=== PATIENT | female | born 1955 | race American Indian/Alaskan Native ===

== ENCOUNTER 2016-04-11 13:01 | Emergency (ER) | payer OTHER ==
[2016-04-11 14:07] VITALS: BP 146/92
[2016-04-11] MEDS ORDERED: BOOSTRIX IM ONE (18:33)
--- NOTE | 2016-04-11 18:38 | Emergency Department Report ---
Burn HPI - History Stated Complaint: BURNED HAND WITH OIL LAST NIGHT Chief Complaint: Burn/Smoke Inhalation Time Seen by Provider: 04/11/16 18:33 Duration of Burn: 1 Day Burn Location: Other Burn Etiology: Accidental Pain: Moderate (right hand) Tetanus Status: Not up to Date Symptoms:: Yes Blistering, Yes Able to Tolerate Fluids, No Malaise, No Myalgias , No Fever, No Vomiting Other History: Patient reports that she accidentally burned her right hand while cooking last night - Home Meds and Allergies Home Medications: Home Medications Medication Instructions Recorded Confirmed Last Taken Aspirin [Aspirin BABY CHEW TAB] 81 mg PO DAILY 02/16/14 02/16/14 02/09/14 Cholecalciferol (Vitamin D3) 2,000 units PO DAILY 02/16/14 02/16/14 02/15/14 [Vitamin D-3] Metformin HCl [Metformin HCl ER] 500 mg PO DAILY 02/16/14 02/16/14 02/15/14 Naproxen Sodium [Aleve] 220 mg PO PRN 02/16/14 02/16/14 02/09/14 Olmesartan/Hydrochlorothiazide 1 tab PO DAILY 02/16/14 02/16/14 02/16/14 [Benicar HCT 40-12.5 mg] [place]-3S/Dha/Epa/Fish Oil [Fish 1,200 mg PO DAILY 02/16/14 02/16/14 02/15/14 Oil EC 1,200 mg Softgel] Simvastatin [Simvastatin] 20 mg PO DAILY 02/16/14 02/16/14 02/15/14 Previous Rx's Medication Instructions Recorded Last Taken Type Acetaminophen [Acetaminophen ER 650 mg PO Q8HR PRN #20 tablet.er 04/11/16 Unknown Rx TAB] Silver Sulfadiazine 20 gm TP TID #1 cream..g. 04/11/16 Unknown Rx Allergies/Adverse Reactions: Allergies Allergy/AdvReac Type Severity Reaction Status Date / Time No Known Allergies Allergy Verified 06/26/13 01:34 ED Review of Systems ROS: Stated complaint: BURNED HAND WITH OIL LAST NIGHT Other details as noted in HPI Constitutional: denies: chills, diaphoresis, fever, malaise, weakness Respiratory: denies: cough, orthopnea, shortness of breath, SOB with exertion, SOB at rest, stridor, wheezing Cardiovascular: denies: chest pain, palpitations, dyspnea on exertion, orthopnea , edema, syncope, paroxysmal nocturnal dyspnea Skin: other (second-degree burn on the right dorsum and palmar hand). denies: rash, lesions, change in color, change in hair/nails, pruritus Hematological/Lymphatic: denies: easy bleeding, easy bruising, swollen glands ED Past Medical Hx - Past Medical History Hx Hypertension: No Hx Diabetes: Yes Hx Liver Disease: No Hx Renal Disease: No Hx Sickle Cell Disease: No Hx Seizures: No - Surgical History Hx Cholecystectomy: Yes Additional Surgical History: leep - Social History Smoking Status: Never Smoker Substance Use Type: None - Medications Home Medications: Home Medications Medication Instructions Recorded Confirmed Last Taken Type Aspirin [Aspirin BABY CHEW TAB] 81 mg PO DAILY 02/16/14 02/16/14 02/09/14 History Cholecalciferol (Vitamin D3) 2,000 units PO DAILY 02/16/14 02/16/14 02/15/14 History [Vitamin D-3] Metformin HCl [Metformin HCl ER] 500 mg PO DAILY 02/16/14 02/16/14 02/15/14 History Naproxen Sodium [Aleve] 220 mg PO PRN 02/16/14 02/16/14 02/09/14 History Olmesartan/Hydrochlorothiazide 1 tab PO DAILY 02/16/14 02/16/14 02/16/14 History [Benicar HCT 40-12.5 mg] [place]-3S/Dha/Epa/Fish Oil [Fish 1,200 mg PO DAILY 02/16/14 02/16/14 02/15/14 History Oil EC 1,200 mg Softgel] Simvastatin [Simvastatin] 20 mg PO DAILY 02/16/14 02/16/14 02/15/14 History Acetaminophen [Acetaminophen ER 650 mg PO Q8HR PRN #20 tablet.er 04/11/16 Unknown Rx TAB] Silver Sulfadiazine 20 gm TP TID #1 cream..g. 04/11/16 Unknown Rx Exam - Exam General: Vital signs noted. No distress. Alert and acting appropriately. HEENT: Yes Moist Mucous Membranes, No Conjuctival Injection, No Corneal Edema Skin: Yes Blistering (right dorsum and palmar hand), Yes Tenderness, No Erythroderma, No Edema Exam: Yes Normal Heart Sounds, No Respiratory Distress, No Sensory Deficits, No Musculoskeletal Pain Exam: All other systems are unremarkable except for documentation in HPI ED Course Vital Signs 04/11/16 14:04 Temperature 98.4 F Pulse Rate 81 Respiratory 16 Rate Blood Pressure 146/92 O2 Sat by Pulse 99 Oximetry - Reevaluation(s) Reevaluation #1: 04/11/16 18:35 Tetanus vaccination, Silvadene ointment and dressing ordered 04/12/16 00:15 ED Medical Decision Making - Lab Data Vital Signs 04/11/16 14:04 Temperature 98.4 F Pulse Rate 81 Respiratory 16 Rate Blood Pressure 146/92 O2 Sat by Pulse 99 Oximetry - Medical Decision Making During the course of ED, tetanus vaccination and Silvadene were ordered. Patient was sent home with prescription for Silvadene and Tylenol extra strength , instructed to follow up with selective referrals given at discharge, she verbalize understanding - Differential Diagnosis 2nd Degree Burn Right Hand, Right Hand Infection Critical care attestation.: If time is entered above; I have spent that time in minutes in the direct care of this critically ill patient, excluding procedure time. ED Disposition Clinical Impression: First degree burn Disposition: DISCHARGED TO HOME OR SELFCARE Is pt being admited?: No Does the pt Need Aspirin: No Condition: Stable Instructions: Partial Thickness Burn (ED) Additional Instructions: Take Medication as directed. Follow up with the selective referrals given at discharge. Return back to the ED for worsening symptoms or concerns Prescriptions: Acetaminophen [Acetaminophen ER TAB] 650 mg PO Q8HR PRN #20 tablet.er PRN Reason: Pain Silver Sulfadiazine 20 gm TP TID #1 cream..g. Referrals: DOUGLAS JAFFE JR, MD [Primary Care Provider] - 3-5 Days Forms: Work/School Release Form(ED) Time of Disposition: 18:53
== END 2016-04-11 18:56 | disposition home or self-care (01) ==
LOC: ED 13:01
DX: T23.101A Burn of first degree of right hand, unspecified site, initial encounter (principal); E11.9 Type 2 diabetes mellitus without complications; Z79.82 Long term (current) use of aspirin; X10.2XXA Contact with fats and cooking oils, initial encounter; Y93.89 Activity, other specified; Y99.9 Unspecified external cause status; Y92.89 Other specified places as the place of occurrence of the external cause
CPT/HCPCS: 90471; 90715

== ENCOUNTER 2016-09-25 11:49 | Outpatient (CLI) | payer OTHER ==
--- NOTE | 2016-09-25 13:19 | Mammography Report ---
Bilateral mammogram: No previous studies available. CAD study utilized. Findings: Predominance of adipose tissue bilaterally. No mass or microcalcification. Benign axillary nodes. 3 mm circumscribed asymmetric density subareolar area right breast. Impression: Impression: 3 mm circumscribed density seen in the right breast. Comparison with previous studies is recommended. If previous studies are not available spot mag and sonographic examination advised. BI-RADS CATEGORY: 0 = Needs additional imaging evaluation ACR BI-RADS MAMMOGRAPHIC CODES: 0 = Needs additional imaging evaluation; 1 = Negative; 2 = Benign; 3 = Probably benign; 4 = Suspicious; 5 = Malignant; 6 = Known biopsy-proven malignancy COMMENT: 1. Dense breast tissue, i.e., adenosis, fibrocystic changes, etc., may obscure an underlying neoplasm. 2. Approximately 10% of cancers are not detected with mammography. 3. A negative mammography report should not delay biopsy if a clinically suspicious mass is present. COMMENT: Patient follow-up letters are generated in [employer].
--- NOTE | 2016-09-25 13:39 | XRay Report ---
Left knee 3 views: History: Knee pain. Findings: No articular abnormality. No fracture or dislocation. Large spur anterosuperior patella. No joint effusion. Impression: Large spur at anterosuperior patella.
== END 2016-09-25 11:50 | disposition home or self-care (01) ==
LOC: MAMMO 11:49
PROVIDERS: ATTEND Family Medicine
DX: Z12.31 Encounter for screening mammogram for malignant neoplasm of breast (principal); M76.892 Other specified enthesopathies of left lower limb, excluding foot; E78.00 Pure hypercholesterolemia, unspecified; E11.9 Type 2 diabetes mellitus without complications
CPT/HCPCS: 73562; G0202; 77067

== ENCOUNTER 2018-09-13 10:17 | Outpatient (CLI) | payer OTHER ==
--- NOTE | 2018-09-13 11:26 | Mammography Report ---
BILATERAL MAMMOGRAM: FINDINGS: The breast tissue is heterogeneously dense, which could obscure detection of small masses (approximately 50%-75% glandular). No mass, distortion, suspicious calcification, or skin change is seen. There is no change when compared to prior exam in September 2016. CAD was utilized. IMPRESSION: Negative mammogram. There is no mammographic evidence of malignancy. RECOMMENDATION: Follow-up per ACS guidelines. BI-RADS CATEGORY: 1 = Negative ACR BI-RADS MAMMOGRAPHIC CODES: 0 = Needs additional imaging evaluation; 1 = Negative; 2 = Benign; 3 = Probably benign; 4 = Suspicious; 5 = Malignant; 6 = Known biopsy-proven malignancy COMMENT: 1. Dense breast tissue, i.e., adenosis, fibrocystic changes, etc., may obscure an underlying neoplasm. 2. Approximately 10% of cancers are not detected with mammography. 3. A negative mammography report should not delay biopsy if a clinically suspicious mass is present. COMMENT: Patient follow-up letters are generated in [employer].
== END 2018-09-13 10:18 | disposition home or self-care (01) ==
LOC: MAMMO 10:17
PROVIDERS: ATTEND Family Medicine
DX: Z12.31 Encounter for screening mammogram for malignant neoplasm of breast (principal); E78.00 Pure hypercholesterolemia, unspecified; E11.9 Type 2 diabetes mellitus without complications
CPT/HCPCS: 77067